=== PATIENT | male | born 1970 | race American Indian/Alaskan Native ===

== ENCOUNTER 2018-06-01 10:45 | Day surgery (SDC) | payer OTHER ==
[2018-06-01] MEDS ORDERED: LACTATED RINGERS 1,000 ML ONE (11:24)
[2018-06-01] MEDS ORDERED: TYLENOL ONE (11:26)
[2018-06-01] MEDS ORDERED: ZOFRAN ONE (11:43)
[2018-06-01] MEDS ORDERED: TRANSDERM-SCOP TD ONE (11:44)
[2018-06-01] MEDS ORDERED: PEPCID IV ONE (11:44)
[2018-06-01] MEDS ORDERED: NACL 0.9% 1000 ML 1,000 ML ONE ×2 (11:51→15:52)
--- NOTE | 2018-06-01 12:18 | Anesthesia Day of Surgery ---
Anesthesia Day of Surgery - Day of Surgery Patient Examined: Yes Patient H&P Reviewed: Yes Patient is NPO: Yes
--- NOTE | 2018-06-01 12:19 | Anesthesia Consultation ---
Anesthesia Consult and Med Hx Date of service: 06/01/18 - Airway Anesthetic Teeth Evaluation: Poor ROM Head & Neck: Adequate Mental/Hyoid Distance: Adequate Mallampati Class: Class III Intubation Access Assessment: Possibly Difficult - Pulmonary Exam CTA: Yes - Cardiac Exam Cardiac Exam: RRR - Pre-Operative Health Status ASA Pre-Surgery Classification: ASA3 Proposed Anesthetic Plan: General (ETT, pt is sick, nauseated this am) - Pulmonary Hx Smoking: No - Cardiovascular System Hx Hypertension: Yes (1 YR/ DR. GRAY MCNULTY(PCP)MONITORS) - Other Systems Hx Alcohol Use: Yes (1-2 DRINKS ANNUALLY) Hx Substance Use: No Hx Cancer: No
[2018-06-01] MEDS ORDERED: DEMEROL IV PRN (12:30)
[2018-06-01] MEDS ORDERED: ZOFRAN IV PRN (12:30)
[2018-06-01 12:45] LABS: Basophils % (Auto) 0.4 % (0.0-1.8); Eosinophils % (Auto) 0.1 % (0.0-4.3); Hematocrit 40.3 % (35.5-45.6); Hemoglobin 13.7 gm/dl (11.8-15.2); Lymphocytes # (Auto) 0.7 K/mm3 (1.2-5.4); Lymphocytes % (Auto) 9.3 % (13.4-35.0); Mean Corpuscular HGB Conc 34 % (32-34); Mean Corpuscular Volume 92 fl (84-94); Monocytes # (Auto) 0.5 K/mm3 (0.0-0.8); Monocytes % (Auto) 7.2 % (0.0-7.3); Platelet Count 187 K/mm3 (140-440); Red Cell Distribution Width 12.9 % (13.2-15.2)
[2018-06-01] MEDS ORDERED: XYLOCAINE MPF 2% ONE (13:40)
[2018-06-01] MEDS ORDERED: DECADRON ONE (13:40)
[2018-06-01] MEDS ORDERED: ZEMURON IV ONE (13:40)
[2018-06-01] MEDS ORDERED: SUBLIMAZE ONE (13:40)
[2018-06-01] MEDS ORDERED: DIPRIVAN 10 MG/ML IV ONE ×2 (13:40→14:47)
[2018-06-01] MEDS ORDERED: QUELICIN ONE (13:40)
[2018-06-01] MEDS ORDERED: DILAUDID ONE (13:45)
[2018-06-01] MEDS ORDERED: METHYLENE BLUE IV ONE (14:05)
[2018-06-01] MEDS ORDERED: GENTAMICIN/NS 80 MG/100 ML 100 ML IV ONE (14:10)
[2018-06-01] MEDS ORDERED: METHYLENE BLUE ONE (14:16)
[2018-06-01] MEDS ORDERED: LASIX ONE (14:22)
[2018-06-01] MEDS ORDERED: ANCEF/STERILE WATER 2 GM/20 ML IV NR (15:00)
[2018-06-01 15:01] LABS: Albumin 3.5 g/dL (3.9-5); Calcium 8.3 mg/dL (8.4-10.2)
--- NOTE | 2018-06-01 15:14 | Post Operative Note ---
Date of procedure: 06/01/18 Pre-op diagnosis: hydro stone Post-op diagnosis: other Findings: mass in pelvis left ureteral stone Procedure: cysto stents biopsies Anesthesia: GETA Surgeon: MOOKIE VERA Estimated blood loss: minimal Pathology: list (bladder and culture) Specimen disposition: to lab Condition: stable Disposition: PACU
--- NOTE | 2018-06-01 15:16 | Discharge Summary ---
Short Stay Discharge Plan Activity: other (no straining ) Weight Bearing Status: Full Weight Bearing Diet: low fat, low cholesterol, low salt Special Instructions: other (inc fluids ) Durable Medical Equipment Needed Upon Discharge: other (cruz and stents ) Follow up with: SLY FLORES JR, MD [Primary Care Provider] - 7 Days MOOKIE VERA MD [Staff Physician] - 7 Days
[2018-06-01] MEDS: DILAUDID IV PRN ×2 (15:43→16:06)
[2018-06-01] MEDS ORDERED: NACL 0.9% 1,000 ML IR ONE ×2 (15:51)
--- NOTE | 2018-06-01 16:12 | Operative Report ---
PREOPERATIVE DIAGNOSES: Severe flank pain, left upper ureteral stone, hydronephrosis, fevers, chills. POSTOPERATIVE DIAGNOSES: Evidence of a pelvic mass, bilateral hydronephrosis, renal insufficiency, and possible mass underneath the trigone. PROCEDURE: Cystoscopy, biopsy, very difficult inserting bilateral ureteral stents and drainage. SURGEON: Cyrus Stringer MD ANESTHESIA: General. FINDINGS: This gentleman came in with intermittent fevers, chills, flank pain, evidence of left upper ureteral stone. His pain was on his left. He has no real medical history. DESCRIPTION OF PROCEDURE: The patient was brought to the operating room and placed on the operating table. Following induction of anesthesia, placed in lithotomy position, prepped and draped in usual sterile fashion. Cystourethroscopy showed a very elevated bladder neck with evidence of a mass underneath the trigone. There were severe inflammatory and possible neoplastic changes around the trigone. It took some time despite any blue, which never showed up. We found the right orifice. Retrograde showed the right ureter to be dilated down to the level of the pelvic brim with a lateral deviation of the ureters. Finally, we found the left orifice with again lateral deviation with distal ureteral stenosis. Rectal exam did not show a mass. Once we got to right and the left ureter, this showed severe hydroureteronephrosis. We were able to place a stent. Otherwise, we would have placed a nephrostomy tube. It looks like we pushed the stone up, but it looks like there is a mass in the pelvis. The patient tolerated the procedure well. We sultana Chem-7 about 45 minutes ago, it is still not back and there were some problems with the leg on the right side with the table, but eventually we were very successful to avoid percutaneous nephrostomy and continue the workup. I will get a stat CT from recovery. JOB# [id number] BRIAN/TAYLER
[2018-06-01] MEDS ORDERED: PERCOCET 5/325 PO PRN (17:14)
--- NOTE | 2018-06-01 17:51 | Post Anesthesia Evaluation ---
- Post Anesthesia Evaluation Patient Participated: Yes Airway Patent: Yes Stable Respiratory Function: Yes Nausea/Vomiting: No Temp > 96.8F: Yes Pain Manageable: Yes Adequeate Hydration: Yes Anesthesia Complications: No
--- NOTE | 2018-06-01 17:57 | Cat Scan Report ---
FINAL REPORT PROCEDURE: CT abdomen and pelvis without contrast. TECHNIQUE: Computerized axial tomography of the abdomen and pelvis was performed without intravenous contrast. This study is performed without intravascular contrast material and its sensitivity for ab dominal and pelvic pathology, including neoplasms, inflammation, abscess, free fluid, thrombosis, art erial dissection and infarction, is reduced compared with a contrast enhanced study. HISTORY: Hydronephrosis, pelvic mass. COMPARISON: No prior studies are available for comparison. FINDINGS: There is some dense opacity in the dependent portions of both lower lobes. There are some air broncho grams visible. This could represent pneumonia. Atelectasis or chronic scarring are additional possibi lities. There is a trace amount of pleural fluid bilaterally. The heart size is normal. There are sev eral focal masses of low attenuation in the liver. These are fairly sharply defined. They probably re present hepatic cysts. The gallbladder is present. There is no biliary dilatation. The pancreas and s pleen are grossly normal. The adrenal glands are not enlarged. There is a very large mass arising ant eriorly from the left kidney. This has low attenuation and probably represents a simple cyst. This me asures 7.8 centimeters in diameter. There are bilateral internal ureteral stents. The proximal end of the left stent has entered the renal parenchyma. This is best seen on image 56 of series 2. There is no hydronephrosis. The abdominal aorta has a normal caliber. There is no retroperitoneal adenopathy. There is a Cardoza catheter in the bladder. The seminal vesicles and prostate appear normal. The unopa cified gastrointestinal tract is unremarkable. A normal appendix is visible. The regional skeleton ap pears intact. IMPRESSION: Abnormal bilateral lower lobe lung opacity as discussed above. Trace amount of pleural fluid bilatera lly. Probable large left renal cyst. Bilateral internal ureteral stents. Positioning of left stent as discussed above. Probable multiple hepatic cysts.
[2018-06-01 21:06] VITALS: BP 134/80
--- NOTE | 2018-06-05 08:56 | Fluoroscopy Report ---
FLUOROSCOPY RETROGRADE UROGRAPHY: HISTORY: Left ureteral stone. FINDINGS: Fluoroscopy was provided by radiology during retrograde urography by the urologist. 9 fluoroscopic images were captured. The images demonstrate only a small amount of contrast in the distal right ureter and left collecting system. There appears to be a bifid left renal pelvis. Subsequent images demonstrate placement of bilateral ureteral stents which adequately during the collecting systems. Bladder biopsy was performed per the operative notes. Please correlate with the procedural report as needed. IMPRESSION: Bilateral ureteral stent placement.
== END 2018-06-01 19:45 | disposition home or self-care (01) ==
LOC: OR 10:45
PROVIDERS: ATTEND Urology
DX: N13.2 Hydronephrosis with renal and ureteral calculous obstruction (principal); I10 Essential (primary) hypertension; E78.00 Pure hypercholesterolemia, unspecified; Z79.899 Other long term (current) drug therapy; Z72.89 Other problems related to lifestyle; Z98.890 Other specified postprocedural states
CPT/HCPCS: 36415; 52332; 74176; 74420; 80053; 82962; 85025; 87086; 88305; 88341; 88342; C1758; C1769; C2617; J0330; J0690; J1100; J1170; J1580; J1940; J2405; J2704; J3010; J7030; J7120; Q9967; Q9968

== ENCOUNTER 2018-06-15 07:53 | Day surgery (SDC) | payer OTHER ==
[2018-06-15] MEDS ORDERED: ANCEF/STERILE WATER 2 GM/20 ML IV NR (09:00)
[2018-06-15] MEDS ORDERED: DIPRIVAN 10 MG/ML IV ONE (09:59)
[2018-06-15] MEDS ORDERED: SUBLIMAZE ONE (09:59)
[2018-06-15] MEDS ORDERED: LACTATED RINGERS 1,000 ML IV SCH (10:00)
[2018-06-15] MEDS ORDERED: LACTATED RINGERS 1,000 ML ONE (10:00)
[2018-06-15] MEDS ORDERED: VERSED IV NR (10:00)
[2018-06-15] MEDS ORDERED: XYLOCAINE MPF 2% ONE (10:00)
[2018-06-15 12:36] VITALS: BP 122/68
--- NOTE | 2018-06-15 12:59 | Anesthesia Day of Surgery ---
Anesthesia Day of Surgery - Day of Surgery Patient Examined: Yes Patient H&P Reviewed: Yes Patient is NPO: Yes
[2018-06-15] MEDS ORDERED: ZOFRAN IV PRN (13:00)
[2018-06-15] MEDS ORDERED: DILAUDID IV PRN (13:00)
--- NOTE | 2018-06-15 13:00 | Anesthesia Consultation ---
Anesthesia Consult and Med Hx Date of service: 06/15/18 - Airway Anesthetic Teeth Evaluation: Poor ROM Head & Neck: Adequate Mental/Hyoid Distance: Adequate Mallampati Class: Class III Intubation Access Assessment: Possibly Difficult - Pulmonary Exam CTA: Yes - Cardiac Exam Cardiac Exam: RRR - Pre-Operative Health Status ASA Pre-Surgery Classification: ASA3 Proposed Anesthetic Plan: General (obesity, JAY precautions) - Pulmonary Hx Smoking: No Hx Pneumonia: No - Cardiovascular System Hx Hypertension: Yes - Other Systems Hx Alcohol Use: Yes (1-2 DRINKS ANNUALLY) Hx Substance Use: No Hx Cancer: No
--- NOTE | 2018-06-15 13:22 | Short Stay Summary ---
Short Stay Documentation Date of service: 06/15/18 - History H&P: obtained from office - Allergies and Medications Current Medications: Allergies No Known Allergies Allergy (Unverified 06/03/14 11:24) Home Medications Medication Instructions Recorded Confirmed Last Taken Type Atorvastatin Calcium [Lipitor] 10 mg PO DAILY 06/10/14 06/15/18 06/14/18 History Centrum Adults Tablet 1 tab PO DAILY 06/02/18 06/15/18 06/14/18 History Active Medications Cefazolin Sodium (Ancef/Sterile Water 2 Gm/20 Ml) 2 gm IV PREOP NR Stop: 06/15/18 20:00 Hydromorphone HCl (Dilaudid) 0.5 mg IV Q10MIN PRN PRN Reason: Pain , Severe (7-10) Lactated Ringer's (Lactated Ringers) 1,000 mls @ 100 mls/hr IV DIRECT ROCCO Last Admin: 06/15/18 10:00 Dose: 100 mls/hr Documented by: Midazolam HCl (Versed) 2 mg IV PREOP NR Stop: 06/15/18 23:59 Last Admin: 06/15/18 10:01 Dose: 2 mg Documented by: Ondansetron HCl (Zofran) 4 mg IV ONCE PRN PRN Reason: Nausea And Vomiting - Brief post op/procedure progress note Date of procedure: 06/15/18 Pre-op diagnosis: Left reanl lower pole 7mm stone Post-op diagnosis: same Procedure: left renal eswl Anesthesia: GETA Findings: good vis. mild frag Surgeon: JERI CAMPBELL Estimated blood loss: minimal Pathology: none Condition: stable - Hospital course Hospital course: orpacuhome - Disposition Condition at discharge: Good Disposition: DC-01 TO HOME OR SELFCARE Short Stay Discharge Plan Activity: advance as tolerated Diet: advance as tolerated Additional Instructions: DIET : REGULAR- INCREASE ORAL FLUIDS 8-10 GLASSES OF WATER PER DAY. NO ALCOHOLIC CARBONATED OR CAFFEINATED. APPOINTMENT FOLLOW UP W UP IN 7 DAYS CALL FOR APPOINTMENT AND FOR ANY QUESTIONS OR CONCERNS RELATED TO PROCEDURE. CONTINUE WITH ANTIBIOTIC. Follow up with: JERI CAMPBELL MD [Staff Physician] - 7 Days Forms: Outpatient Surgery DC Inst.
--- NOTE | 2018-06-19 11:47 | Operative Report ---
PREOPERATIVE DIAGNOSIS: Left renal lower 8 mm stone. POSTOPERATIVE DIAGNOSIS: Left renal lower 8 mm stone. PROCEDURE: Left renal ESWL. SURGEON: Diaz Sabillon MD ANESTHESIA: General. SPECIMENS: None. ESTIMATED BLOOD LOSS: Minimal. COMPLICATIONS: None. FINDINGS: Good visualization, moderate fragmentation. CLINICAL INDICATIONS: The patient was counseled by RCBA, antibiotics, SCD. DESCRIPTION OF PROCEDURE: The patient was transferred to OR suite in supine position, anesthesia begun. Biplanar fluoroscopy was used to target the stone with an F2. At the end of the procedure, there was decreased density of the stone. Intermittent repositioning was done as necessary. There was decreased density of the stone. Intermittent repositioning was done as necessary with fluoroscopy. The patient was awakened and transferred to PACU in good and stable condition. JOB# [id number] ATS/NTS
== END 2018-06-15 07:54 | disposition home or self-care (01) ==
LOC: OR 07:53
PROVIDERS: ATTEND Urology
DX: N20.0 Calculus of kidney (principal); E78.00 Pure hypercholesterolemia, unspecified; I10 Essential (primary) hypertension; N40.0 Benign prostatic hyperplasia without lower urinary tract symptoms; H54.62 Unqualified visual loss, left eye, normal vision right eye; Z79.899 Other long term (current) drug therapy; Z72.89 Other problems related to lifestyle; Z98.890 Other specified postprocedural states
CPT/HCPCS: 50590; J0690; J2250; J2704; J3010; J7120

== ENCOUNTER 2018-07-03 03:33 | Emergency (ER) | payer OTHER ==
[2018-07-03] MEDS ORDERED: NACL 0.9% 1000 ML 1,000 ML IV ONE ×2 (04:18→06:19)
[2018-07-03] MEDS ORDERED: TYLENOL PO ONE (04:18)
[2018-07-03] MEDS ORDERED: ZOFRAN IV ONE ×2 (04:18→07:42)
[2018-07-03 05:37] LABS: Bacteria,Urine 2+ /HPF (Negative); Bilirubin,Urine NEG (Negative); Blood,Urine LG (Negative); Color,Urine Amber (Yellow); Hyaline Casts,Urine 6 /LPF; Mucus,Urine 3+ /HPF; Urobilinogen,Urine < 2.0 mg/dL (<2.0)
[2018-07-03 05:39] LABS: RBC,Urine > 182.0 /HPF (0.0-6.0); WBC,Urine > 182.0 /HPF (0.0-6.0)
[2018-07-03] MEDS ORDERED: LEVAQUIN 750MG/150ML 750 MG/150 ML BAG IV ONE (06:19)
--- NOTE | 2018-07-03 06:23 | Emergency Department Report ---
HPI - General Chief Complaint: Urogenital-Male Time Seen by Provider: 07/03/18 05:59 - HPI HPI: 48-year-old male presents to the emergency department with a 2- 3 day history of some generalized abdominal pain, nausea, vomiting and fever. T he patient does have a history of kidney stones and been going on since and he has been dealing with his urologist, Dr. Stringer, regarding this. The patient says that he had lithotripsy about 2 weeks ago for kidney stones on the left side. He has required stents in the past. The patient also has been dealing with a sinus infection with copious sinus drainage. He has seen a retail pos specialist twice. The patient has been on Zofran, omeprazole, cefuroxime. He says that either the omeprazole and Zofran makes him feel worse. He says that recent blood work with his urologist showed some mild renal insufficiency. Recent travel or sick contacts at home. Patient had a fever of between 100 - 102F over the weekend. ED Past Medical Hx - Past Medical History Previous Medical History?: Yes Hx Hypertension: No Hx Kidney Stones: Yes Hx HIV: No - Surgical History Past Surgical History?: Yes Additional Surgical History: L renal stent x1, 06/01/2018, lithotripsy - Social History Smoking Status: Never Smoker Substance Use Type: None - Medications Home Medications: Home Medications Medication Instructions Recorded Confirmed Last Taken Type RX: Atorvastatin Calcium [Lipitor] 10 mg PO DAILY 06/10/14 06/28/18 06/14/18 History Centrum Adults Tablet 1 tab PO DAILY 06/02/18 06/28/18 06/14/18 History Fluticasone [Flonase] 1 spray NS QDAY 06/28/18 06/28/18 Unknown History Nitrofurantoin Macrocrystal 50 mg PO BID 06/28/18 06/28/18 Unknown History [Nitrofurantoin] Oxycodone HCl/Acetaminophen 1 each PO Q6HR PRN 06/28/18 06/28/18 Unknown History [Percocet 10/325 mg] Tamsulosin HCl [Flomax] 0.4 mg PO DAILY 06/28/18 06/28/18 Unknown History Ondansetron [Zofran Odt] 4 mg PO Q8HR PRN #12 tab.rapdis 07/03/18 Unknown Rx RX: Pseudoephedrine ER [Sudafed 12 120 mg PO QDAY #5 tablet.er 07/03/18 Unknown Rx Hr] Sulfamethoxazole/Trimethoprim 1 each PO BID #14 tablet 07/03/18 Unknown Rx [Bactrim DS TAB] ED Review of Systems ROS: Stated complaint: N/V KIDNEY STONE Other details as noted in HPI Comment: All other systems reviewed and negative Constitutional: chills, fever Eyes: denies: eye pain, vision change ENT: congestion. denies: ear pain Respiratory: denies: cough, shortness of breath Cardiovascular: denies: chest pain, palpitations Gastrointestinal: abdominal pain, nausea, vomiting Genitourinary: denies: hematuria, discharge Musculoskeletal: denies: back pain, arthralgia Skin: denies: rash, lesions Neurological: denies: headache, weakness Physical Exam - Physical Exam Vital Signs: Vital Signs 07/03/18 07/03/18 07/03/18 03:47 04:17 05:04 Temperature 99.6 F 101.1 F H Pulse Rate 109 H 102 H Respiratory 20 16 16 Rate Blood Pressure 115/68 Blood Pressure 121/64 [Left] O2 Sat by Pulse 98 95 95 Oximetry Physical Exam: GENERAL: The patient is well-developed well-nourished. HEENT: Normocephalic. Atraumatic. Patient has moist mucous membranes. Oropharynx is clear but the posterior pharynx does have some hypervascularity and signs of postnasal drip. No drooling or trismus. Boggy nasal mucosa. EYES: Extraocular motions are intact. Pupils are equal and reactive to light bilaterally. NECK: Supple. Trachea is midline. CHEST/LUNGS: Clear to auscultation. There is no respiratory distress noted. HEART/CARDIOVASCULAR: Regular. There is no tachycardia. There is no obvious murmur. ABDOMEN: Abdomen is soft. Mild generalized tenderness to palpation of the abdomen. No guarding. Patient has normal bowel sounds. There is no abdominal distention. SKIN: Skin is warm and dry. NEURO: The patient is awake, alert, and oriented. The patient is cooperative. The patient has no focal neurologic deficits. The patient has normal speech. MUSCULOSKELETAL: There is no tenderness or deformity. There is no limitation range of motion. There is no evidence of acute injury. ED Course Vital Signs 07/03/18 07/03/18 07/03/18 03:47 04:17 05:04 Temperature 99.6 F 101.1 F H Pulse Rate 109 H 102 H Respiratory 20 16 16 Rate Blood Pressure 115/68 Blood Pressure 121/64 [Left] O2 Sat by Pulse 98 95 95 Oximetry - Consultations Consultation #1: I spoke with the patient's urologist, Dr. Stringer, regarding the patient's pre sentation, his urinary tract infection, and the ultrasound showing the complex left renal cyst and mild bilateral hydronephrosis. Dr. Morris agrees with the plan to switch to a different antibiotic and is comfortable with the patient's discharge home and outpatient follow-up as previously scheduled. 07/03/18 14:04 ED Medical Decision Making - Lab Data Result diagrams: 07/03/18 06:30 07/03/18 06:30 - Radiology Data Radiology results: report reviewed, image reviewed interpreted by me: Abdominal x-ray shows nonspecific nonobstructive bowel gas. EXAM: US ABDOMEN COMPLETE HISTORY: Abd pain, hematuria, UTI TECHNIQUE: Abdomen ultrasound. PRIORS: None currently available. FINDINGS: Liver: Normal echotexture. Two simple right hepatic cysts. Gallbladder: Sludge. Wall is within normal limits. 3.1 mm common bile duct is within normal limits. Pancreas: Obscured by overlying bowel gas. Kidneys: 11.2 and 14.3 cm right and left kidneys demonstrate mild hydronephrosis. No stone. Complex left renal cyst measures 8.3 cm. No right renal cortical lesion. Spleen: Unremarkable. 12.3 cm. Proximal aorta measures 1.9 cm. IVC is patent. No free fluid. IMPRESSION: Simple right hepatic cysts. Complex left renal cyst. Further evaluation with CT urogram is recommended if clinically indicated. Sludge in the gallbladder. No ultrasound evidence for cholecystitis. Mild bilateral hydronephrosis. Transcribed By: TYM Dictated By: BJ CORONADO MD Electronically Authenticated By: BJ CORONADO MD Signed Date/Time: 07/03/18 0906 - Medical Decision Making Patient presents with a fever, nausea, vomiting, abdominal pain. He does have a history of nephrolithiasis with recent lithotripsy and is scheduled for another procedure by urology on Tuesday. He was given some Tylenol for his fever and Zofran for nausea. Labs are mostly unremarkable except for some renal insufficiency which appears chronic and a urinary tract infection with hematuria. Ultrasound shows a large left renal complex cyst which was pre viously seen on CT scan and has been evaluated by urology, and shows mild bilateral hydronephrosis. Patient's vital signs were stable throughout his ED course. Fever resolved with the Tylenol. He was given some IV antibiotics for the urinary tract infection. He was reevaluated multiple times for multiple hours and is feeling improved. I spoke with the patient's urologist per the consultation section. The patient will be discharged home with antibiotics, a few days of decongestant, and will follow up with his primary care physician and urologist. He has been instructed to return to the emergency Department with any worsening of symptoms or any acute distress. Critical Care Time: No Critical care attestation.: If time is entered above; I have spent that time in minutes in the direct care of this critically ill patient, excluding procedure time. ED Disposition Clinical Impression: Abdominal pain Qualifiers: Abdominal location: generalized Qualified Code(s): R10.84 - Generalized abdominal pain Nausea & vomiting Qualifiers: Vomiting type: unspecified Vomiting Intractability: non-intractable Qualified Code(s): R11.2 - Nausea with vomiting, unspecified UTI (urinary tract infection) Qualifiers: Urinary tract infection type: acute cystitis Hematuria presence: with hematuria Qualified Code(s): N30.01 - Acute cystitis with hematuria Hematuria Qualifiers: Hematuria type: unspecified type Qualified Code(s): R31.9 - Hematuria, unspecified CKD (chronic kidney disease) Qualifiers: Chronic kidney disease stage: stage 1 Qualified Code(s): N18.1 - Chronic kidney disease, stage 1 Disposition: TO HOME OR SELFCARE Is pt being admited?: No Condition: Stable Instructions: Urinary Tract Infection in Men (ED), Chronic Kidney Disease (ED), Acute Nausea and Vomiting (ED), Abdominal Pain (ED) Additional Instructions: Please follow-up with your primary care physician and urologist in the next few days. Return to the emergency Department with any worsening of your symptoms or any acute distress. Prescriptions: Ondansetron [Zofran Odt] 4 mg PO Q8HR PRN #12 tab.rapdis PRN Reason: Nausea RX: Pseudoephedrine ER [Sudafed 12 Hr] 120 mg PO QDAY #5 tablet.er Sulfamethoxazole/Trimethoprim [Bactrim DS TAB] 1 each PO BID #14 tablet Referrals: MOOKIE STRINGER MD [Primary Care Provider] - 2-3 Days Time of Disposition: 11:36
[2018-07-03 06:43] LABS: Basophils % (Auto) 0.4 % (0.0-1.8); Eosinophils % (Auto) 0.1 % (0.0-4.3); Hematocrit 33.4 % (35.5-45.6); Hemoglobin 11.4 gm/dl (11.8-15.2); Lymphocytes # (Auto) 1.1 K/mm3 (1.2-5.4); Lymphocytes % (Auto) 10.1 % (13.4-35.0); Mean Corpuscular HGB Conc 34 % (32-34); Mean Corpuscular Volume 90 fl (84-94); Monocytes % (Auto) 8.8 % (0.0-7.3); Platelet Count 368 K/mm3 (140-440); Red Blood Count 3.72 M/mm3 (3.65-5.03)
[2018-07-03 06:59] LABS: Albumin 3.3 g/dL (3.9-5); Calcium 8.6 mg/dL (8.4-10.2)
[2018-07-03] MEDS ORDERED: ZOFRAN ONE (07:42)
--- NOTE | 2018-07-03 07:48 | XRay Report ---
ABDOMEN RADIOGRAPHS INDICATION: Abdominal pain. COMPARISON: 06/01/2018 CT. FINDINGS: Frontal supine and upright abdominal radiographs, 3 images, again demonstrate bilateral ureteral stents. The proximal loop of the left ureteral stent again noted straightened and extending superolaterally toward the left, known by recent CT to extend into the renal parenchyma. A 0.5 cm left renal calculus also again projects beneath the 12th rib. Nonobstructive bowel gas pattern. No pneumatosis or pneumoperitoneum. EKG leads. Imaged lung bases demonstrate slight exaggerated cardiomediastinal silhouette and some bibasilar densities, possibly atelectasis or scarring. Intact bones. CONCLUSION: No acute abdominal radiographic abnormality with few findings, as detailed above. Thank you for the opportunity to participate in this patient's care.
--- NOTE | 2018-07-03 09:06 | Ultrasound Report ---
FINAL REPORT EXAM: US ABDOMEN COMPLETE HISTORY: Abd pain, hematuria, UTI TECHNIQUE: Abdomen ultrasound. PRIORS: None currently available. FINDINGS: Liver: Normal echotexture. Two simple right hepatic cysts. Gallbladder: Sludge. Wall is within normal limits. 3.1 mm common bile duct is within normal limits. Pancreas: Obscured by overlying bowel gas. Kidneys: 11.2 and 14.3 cm right and left kidneys demonstrate mild hydronephrosis. No stone. Complex l eft renal cyst measures 8.3 cm. No right renal cortical lesion. Spleen: Unremarkable. 12.3 cm. Proximal aorta measures 1.9 cm. IVC is patent. No free fluid. IMPRESSION: Simple right hepatic cysts. Complex left renal cyst. Further evaluation with CT urogram is recommended if clinically indicated. Sludge in the gallbladder. No ultrasound evidence for cholecystitis. Mild bilateral hydronephrosis.
[2018-07-03 10:29] VITALS: BP 124/81
== END 2018-07-03 11:48 | disposition home or self-care (01) ==
LOC: ED 03:33
DX: N30.01 Acute cystitis with hematuria (principal); N18.1 Chronic kidney disease, stage 1; Z79.899 Other long term (current) drug therapy
CPT/HCPCS: 36415; 74019; 76700; 80053; 81001; 82140; 82805; 83690; 85025; 87086; 96361; 96365; 96366; 96375; 96376; 99285; J1956; J2405; J7030

== ENCOUNTER 2018-07-05 11:32 | Day surgery (SDC) | payer OTHER ==
[~2018-07-05 11:32] MED LIST: ZOFRAN IV PRN
[2018-07-05] MEDS ORDERED: ANCEF/STERILE WATER 2 GM/20 ML IV NR (11:45)
[2018-07-05] MEDS ORDERED: LACTATED RINGERS 1,000 ML IV SCH (11:46)
--- NOTE | 2018-07-05 12:27 | Anesthesia Consultation ---
Anesthesia Consult and Med Hx Date of service: 07/05/18 - Airway Anesthetic Teeth Evaluation: Good ROM Head & Neck: Adequate Mental/Hyoid Distance: Adequate Mallampati Class: Class II Intubation Access Assessment: Probably Good - Pulmonary Exam CTA: Yes - Cardiac Exam Cardiac Exam: RRR - Pre-Operative Health Status ASA Pre-Surgery Classification: ASA2 Proposed Anesthetic Plan: General - Pulmonary Hx Smoking: No Hx Pneumonia: No Hx Sleep Apnea: No (JAY PRE SCREEN LOW RISK) - Cardiovascular System Hx Hypertension: No - Central Nervous System Hx Back Pain: Yes (FROM STONE) - Other Systems Hx Alcohol Use: Yes (1-2 DRINKS ANNUALLY) Hx Substance Use: No Hx Cancer: No
--- NOTE | 2018-07-05 12:27 | Anesthesia Day of Surgery ---
Anesthesia Day of Surgery - Day of Surgery Patient Examined: Yes Patient H&P Reviewed: Yes Patient is NPO: Yes Beta Blockers: No Cardiac Clearance: No Pulmonary Clearance: No Cody's Test: N/A
[2018-07-05] MEDS ORDERED: VERSED IV NR (13:00)
[2018-07-05] MEDS ORDERED: WATER FOR IRRIG STERILE IR ONE ×3 (13:05)
[2018-07-05] MEDS ORDERED: OMNIPAQUE (300 MG) IR ONE (13:05)
[2018-07-05] MEDS ORDERED: XYLOCAINE MPF 2% ONE (13:10)
[2018-07-05] MEDS ORDERED: DIPRIVAN 10 MG/ML IV ONE (13:10)
[2018-07-05] MEDS ORDERED: SUBLIMAZE ONE ×2 (13:10→13:20)
[2018-07-05] MEDS ORDERED: LASIX ONE (14:11)
--- NOTE | 2018-07-05 14:15 | Post Operative Note ---
Date of procedure: 07/05/18 Pre-op diagnosis: bladder lesions Findings: irreg BN stone Procedure: cysto rpg stents laser tur biopsy Anesthesia: GETA Surgeon: MOOKIE VERA Pathology: list (bladder) Specimen disposition: to lab Condition: stable Disposition: PACU
--- NOTE | 2018-07-05 14:17 | Discharge Summary ---
Short Stay Discharge Plan Activity: other (inc fluids no straining ) Weight Bearing Status: Full Weight Bearing Diet: low fat, low cholesterol, low salt Special Instructions: other (as above) Durable Medical Equipment Needed Upon Discharge: other (cruz L stent ) Follow up with: PRAMOD BATISTA MD [Primary Care Provider] - 7 Days MOOKIE VERA MD [Staff Physician] - 7 Days
[2018-07-05] MEDS: SUBLIMAZE IV PRN ×3 (14:35→14:57)
--- NOTE | 2018-07-05 14:50 | Fluoroscopy Report ---
Retrograde pyelogram: Left renal calculus/hydronephrosis. The initial image demonstrates bilateral nephroureteral stents. A small calculus appears over the lower left renal region. Both stents were removed. A left ureteral catheter with laser was introduced. A small amount of contrast opacifies the inferior left collecting system. No filling defect identified on the available images. A left nephroureteral stent was left in place.
[2018-07-05 15:27] VITALS: BP 111/65
--- NOTE | 2018-07-05 17:55 | Operative Report ---
PREOPERATIVE DIAGNOSES: Left ureteral stone, severe inflammatory mass, trigone with previous hydronephrosis. POSTOPERATIVE DIAGNOSES: Left ureteral stone, severe inflammatory mass, trigone with previous hydronephrosis. PROCEDURES: Cystoscopy, removal of right double-J stent, left flexible ureteroscopy, exchange of stent, laser of stone, left kidney with TUR biopsy of bladder neck. SURGEON: Cyrus Stringer M.D. ANESTHESIA: General. FINDINGS: This gentleman had very irregular epithelium at the level of the bladder neck and trigone. It was very difficult to find the orifice initially. He had an upper ureteral stone. We placed double J stents and now he comes back for treatment. DESCRIPTION OF PROCEDURE: The patient was brought to the operating room and placed on the operating table. Following induction of anesthesia, placed in lithotomy position, prepped and draped in usual sterile fashion. The right stent was removed. Left stent was exchanged with 2 wires. Flexible ureteroscopy showed stone in the middle calyx. There was a lower pole stone also that was nonobstructing that was about 4 mm, which was difficult to access. The bigger stone was lasered into multiple fragments and a double J coiled in the kidney. The patient tolerated the procedure well. The trigone was very irregular and we did a TUR biopsy being careful to avoid the right orifice. The stent was in the left orifice is nowhere. The orifices were not disturbed. Area was cauterized. A 22-coude catheter was placed. Bladder neck was very elevated. He was brought to recovery room in stable condition with a Cardoza catheter draining minimally tinged urine. JOB# [id number] BRIAN/TAYLER
== END 2018-07-05 16:05 | disposition home or self-care (01) ==
LOC: OR 11:32
PROVIDERS: ATTEND Urology
DX: N30.20 Other chronic cystitis without hematuria (principal); N20.2 Calculus of kidney with calculus of ureter; N13.30 Unspecified hydronephrosis; N18.9 Chronic kidney disease, unspecified; E78.00 Pure hypercholesterolemia, unspecified; Z72.89 Other problems related to lifestyle; Z98.890 Other specified postprocedural states; Z79.899 Other long term (current) drug therapy; Z87.440 Personal history of urinary (tract) infections
CPT/HCPCS: 52224; 52356; 74420; 88305; A4217; C1726; C1758; C1769; C2617; J0690; J1940; J2250; J2704; J3010; J7120; Q9967